=== PATIENT | female | born 1940 | race Caucasian/White ===

== ENCOUNTER → 2016-10-18 | Outpatient (CLI) | payer MEDICARE, OTHER ==
--- NOTE | 2016-10-18 16:47 | KCIC ---
EXAM: MRI LEFT KNEE WITHOUT CONTRAST. HISTORY: Left knee swelling and pain. TECHNIQUE: MRI of the left knee was performed without intravenous contrast. COMPARISON: None. FINDINGS: The anterior cruciate ligament and posterior cruciate ligament are intact. The medial collateral ligament and lateral collateral ligament complex are intact. The patellar retinacula and extensor mechanism are intact. There is a parrot-beak type tear of the posterior horn of the medial meniscus extending to the meniscal body. A smaller longitudinal tear involves the free edge of the body of the lateral meniscus. There may be a degenerative tear at the root of the lateral meniscal anterior horn. Cartilage loss is full thickness along the lateral patellofemoral compartment. It is also focally full thickness along the weightbearing portion of the medial femoral condyle matter defect measuring 1.6 x 1.3 cm. Lateral compartmental cartilage loss is partial thickness. There are moderate osteophytes along all 3 compartments. There is a large joint effusion. Edema extends into the surrounding soft tissues. There is mild marrow edema about the proximal tibiofibular joint consistent with additional osteoarthritis. IMPRESSION: 1. Parrot-beak tear of the posterior horn and body of the medial meniscus. 2. Small longitudinal tear of the free edge of the body of the lateral meniscus. Possible degenerative tear of the anterior horn. 3. Cartilage loss is full thickness in the lateral patellofemoral compartment and focally along the medial femoral condyle. Moderate osteophytosis. 4. Large joint effusion. Electronically signed by: Judith Rueda MD (10/18/2016 4:43 PM) [id number]
== END | disposition home or self-care (01) ==
LOC: KCIC MRI 15:57
PROVIDERS: ATTEND Physician Assistant Medical
DX: S83.242A Other tear of medial meniscus, current injury, left knee, initial encounter (principal); M25.762 Osteophyte, left knee; M25.462 Effusion, left knee; X58.XXXA Exposure to other specified factors, initial encounter; Y93.89 Activity, other specified; Y92.89 Other specified places as the place of occurrence of the external cause; Y99.8 Other external cause status
CPT/HCPCS: 73721

== ENCOUNTER → 2020-04-12 | Outpatient (CLI) | payer MEDICARE, OTHER ==
[~2020-04-12] MED LIST: AMLO-186 PO; ASPI-630 PO; CALC-31 PO; CYCL1DRO OP; HYDR-2761 PO; LATA2.5D2 RIGHTEYE; METO-239 PO; MULT-121 PO; NITR0.4T24 SL; PANT40TA77 PO; PRAV80TA2 PO; RANO500T2 PO; SOLI10TA2 PO; VIT1TABL34 PO
[2020-04-12 09:02] LABS: BASO # 0.1 x10^3/uL (0.0-0.2); BASO % 1 % (0-3); EOS # 0.4 x10^3/uL (0.0-0.7); EOS % 5 % (0-3); HEMATOCRIT 33.9 % (36.0-47.0); HEMOGLOBIN 11.2 g/dL (12.0-15.5); LYMPH # 1.7 x10^3/uL (1.0-4.8); LYMPH % 23 % (24-48); MEAN CORPUSCULAR HEMOGLOBIN 29 pg (25-35); MEAN CORPUSCULAR HGB CONC 33 g/dL (31-37); MEAN CORPUSCULAR VOLUME 88 fL (79-100); MONO # 0.8 x10^3/uL (0.0-1.1); MONO % 12 % (0-9); NEUT # 4.3 x10^3/uL (1.8-7.7); NEUT % 60 % (31-73); PLATELET COUNT 204 x10^3/uL (140-400); RED BLOOD COUNT 3.87 x10^6/uL (3.50-5.40); RED CELL DISTRIBUTION WIDTH 13.6 % (11.5-14.5); WHITE BLOOD COUNT 7.2 x10^3/uL (4.0-11.0)
[2020-04-12 09:15] LABS: ALBUMIN 3.9 g/dL (3.4-5.0); C-REACTIVE PROTEIN 0.8 mg/L (0-3.3); CALCIUM 9.4 mg/dL (8.5-10.1); CREATININE 1.8 mg/dL (0.6-1.0); GFR 27.2; POTASSIUM 3.8 mmol/L (3.5-5.1)
[2020-04-12 09:59] LABS: PROTHROMBIN TIME PATIENT 12.6 SEC (11.7-14.0)
--- NOTE | 2020-04-12 12:30 | EKG ---
[facility] [address] [place] [address] Test Date: 2020-04-12 Test Time: 11:46:39 Pat Name: ANDRE MELVIN Department: Room: Gender: F Lathe Setup Operator: MURRAY : [id number] Requested By: LAUREN MARINO Order Number: [id number] Reading MD: Germán Ballesteros Measurements Intervals [place] Rate: 88 P: 45 WV: 172 QRS: 43 QRSD: 78 T: 114 QT: 374 QTc: 456 Interpretive Statements SINUS RHYTHM MILD NONSPECIFIC T ABNORMALITY IN HIGH LATERAL LEADS RI6.02 No previous ECG available for comparison Electronically Signed On 04-15-2020 11:49:51 COMPLETIONS ENGINEER by Germán Ballesteros
--- NOTE | 2020-04-12 13:54 | RAD ---
XR CHEST 2V INDICATION: Reason: JOINT PREHAB CLASS-HX HYPERTENSION / Spl. Instructions: LEFT KNEE REPLACEMENT ON 05/04/2020 / History: . COMPARISON STUDY: 06/04/2019. FINDINGS: Lungs: Normal lung volume. No pulmonary mass or consolidation. The tracheobronchial tree and hilar st ructures are normal. Pleura: No pleural effusion or pneumothorax. Heart and Mediastinum: Normal cardiac size. CABG. Atherosclerotic thoracic aorta. Bones and Soft Tissues: Degenerative changes of the spine. Median sternotomy. IMPRESSION: No consolidation. Electronically signed by: Vasquez Ferrara MD (04/12/2020 1:51 PM) [id number]
[2020-04-12 23:08] LABS: HEMOGLOBIN A1C 5.3 % (4.8-5.6)
== END ==
LOC: SURGPAT 11:45
PROVIDERS: ATTEND Orthopaedic Surgery
DX: Z01.818 Encounter for other preprocedural examination (principal); M17.0 Bilateral primary osteoarthritis of knee; I70.0 Atherosclerosis of aorta
CPT/HCPCS: 36415; 71046; 80048; 82040; 82306; 83036; 85025; 85610; 85730; 86140; 87641; 93005

== ENCOUNTER → 2020-05-14 | Outpatient (CLI) | payer MEDICARE, OTHER ==
[2020-04-23 11:02] VITALS: BP 112/70
[~2020-05-14] MED LIST changes: +FERR325T72 PO; +OXYC5CAP PO; +WARF4TAB64 PO
[2020-05-14 11:45] LABS: CALCIUM 9.7 mg/dL (8.5-10.1); CREATININE 2.5 mg/dL (0.6-1.0); GFR 18.6; POTASSIUM 3.9 mmol/L (3.5-5.1)
== END ==
LOC: LAB 10:56
PROVIDERS: ATTEND Orthopaedic Surgery
DX: Z01.812 Encounter for preprocedural laboratory examination (principal); M17.0 Bilateral primary osteoarthritis of knee; Z96.652 Presence of left artificial knee joint; Z20.822 Contact with and (suspected) exposure to COVID-19
CPT/HCPCS: 80048; U0003